=== PATIENT | female | born 1930 | race Caucasian/White ===

== ENCOUNTER 2017-08-17 17:42 | Inpatient (IN) | payer MEDICARE ==
[2017-08-17] MEDS ORDERED: cloNIDine 0.1 MG TAB ONE (18:06)
--- NOTE | 2017-08-17 18:57 | CT ---
CT OF HEAD NONCONTRAST: 08/17/17 CLINICAL HISTORY: Posttraumatic pain. Reference made to 09/01/13. FINDINGS: There is redemonstration of parenchymal atrophy with mild compensatory dilatation of ventricular syst em. Mild to moderate chronic microvascular ischemic disease is present. There is an interval lacunar infarction of the left thalamus. Redemonstration of hypoattenuation of the left subinsula as was desc ribed on previous head CT report. No intracranial hemorrhage, mass effect or midline shift is seen. IMPRESSION: 1. Interval age indeterminate left thalamic lacunar infarction. Correlate clinically as necessar y followup imaging with dedicated brain MRI may prove useful. 2. No acute intracranial hemorrhage or mass effect. POS: [facility]
--- NOTE | 2017-08-17 18:59 | CT ---
CERVICAL SPINE CT NONCONTRAST: 08/17/17 INDICATION: Posttraumatic neck injury, pain. FINDINGS: Craniocervical junction is intact. There is motion artifact/beam hardening artifact limiting detail n otably at the C2 level. No obvious acute fracture. No significant subluxation. There is prominent end plate degenerative change of C5-6 and C6-7 levels. IMPRESSION: No acute fracture of the cervical spine is identified. POS: [facility]
--- NOTE | 2017-08-17 19:02 | RAD ---
FRONTAL RADIOGRAPH PORTABLE SUPINE 08/17/17 COMPARISON: None. HISTORY: Trauma, pain. FINDINGS: The patient is imaged in the supine position, limiting assessment for pneumothorax and pleural fluid. Heart and mediastinal contours are grossly unremarkable. There is no focal consolidation or alveolar edema. IMPRESSION: Grossly unremarkable supine frontal radiograph chest. POS: [facility]
--- NOTE | 2017-08-17 19:06 | RAD ---
FOUR VIEWS RIGHT FEMUR: 08/17/17 COMPARISON: None. HISTORY: Fall, trauma, pain. FINDINGS: There is an obliquely oriented impacted fracture involving the right femoral neck at the base of the femoral head. There is impaction and lateral displacement. No additional fracture is noted. IMPRESSION: Transverse impacted fracture involving the proximal right femoral neck. POS: [facility]
[2017-08-17 19:17] LABS: #Basophils 0.1 thou/uL (0.0-0.2); #Lymphocytes 0.9 thou/uL (1.20-3.40); #Monocytes 0.4 thou/uL (0.11-0.59); #Neutrophils 7.5 thou/uL (1.40-6.50); %Basophils 0.6 % (0.0-1.0); %Eosinophils 0.5 % (0.0-10.0); %Lymphocytes 9.8 % (21.0-51.0); %Monocytes 4.6 % (0.0-10.0); %Neutrophils 84.5 % (42.0-75.0); Hemoglobin 13.1 g/dL (12.0-16.0); Mean Corpuscular HGB CONC 31.1 g/dL (32.0-36.0); Mean Corpuscular Hemoglobin 29.3 pg (27.0-31.0); Mean Corpuscular Volume 94.2 fl (81.0-99.0); Mean Platelet Volume 8.2 fL (7.4-10.4); Platelet Count 195 thou/uL (130-400); RBC Distribution Width 12.7 % (11.5-14.5); Red Blood Cell (RBC) Count 4.48 mill/uL (4.20-5.40); White Blood Cell (WBC) Count 8.8 thou/uL (4.8-10.8)
[2017-08-17 19:38] LABS: ALT (SGPT) 14 U/L (8-55); AST (SGOT) 24 U/L (5-34); Albumin 4.6 g/dL (3.4-4.8); Alkaline Phosphatase 73 U/L (40-150); Anion Gap 20 mmol/L (10-20); BUN (Urea Nitrogen) 47 mg/dL (9.8-20.1); Bilirubin, Total 0.7 mg/dL (0.2-1.2); CK (CPK) 116 U/L (29-168); Calc. Creatinine Clearance 0 mL/min (70-130); Calcium 10.3 mg/dL (7.8-10.44); Carbon Dioxide 19 mmol/L (23-31); Chloride 105 mmol/L (98-107); Estimated GFR-MDRD 18; Globulin 2.8 g/dL (2.4-3.5); Glucose 113 mg/dL (83-110); Lipase 68 U/L (8-78); Potassium 3.8 mmol/L (3.5-5.1); Protein, Total 7.4 g/dL (6.0-8.3); Sodium 140 mmol/L (136-145)
[2017-08-17 19:51] LABS: CKMB 1.4 ng/mL (0-6.6); Troponin I 0.021 ng/mL (< 0.028)
[2017-08-17] MEDS ORDERED: traMADol HCl 50 MG TAB PO PRN (19:51)
[2017-08-17] MEDS ORDERED: Morphine 2 MG/ML SYRINGE IVP PRN (19:51)
[2017-08-17] MEDS ORDERED: Dextrose 5% in Water 1,000 ML IV PRN (19:51)
[2017-08-17] MEDS ORDERED: Ondansetron ODT 4 MG TAB PO PRN (19:51)
[2017-08-17] MEDS ORDERED: Dextrose 50% Abboject 50 ML SYRINGE SLOW IVP PRN (19:51)
[2017-08-17] MEDS ORDERED: Ondansetron HCl/PF 4 MG/2 ML Vial IVP PRN (19:51)
[2017-08-17] MEDS ORDERED: Acetaminophen 1,000 MG in Premix Bag 1 BAG IVPB SCH (21:00)
[2017-08-17] MEDS ORDERED: Famotidine/PF 20 mg/2ml Vial SLOW IVP SCH (21:00)
--- NOTE | 2017-08-17 21:10 | HP ---
DATE OF ADMISSION: 08/17/2017 TRAUMA ACTIVATION: Not applicable. HISTORY OF PRESENT ILLNESS: Chelsea Colon is an 87-year-old female with past medical history of significant Alzheimer dementia and Santiago's palsy who presented to [facility] ER via EMS status post mechanical fall. Per patient' s caregiver at bedside, she was attempting to reach for her shoes on the floor, slipped and fell onto her right side. The patient had difficulty ambulating after her fall and had a complaint of right hip and knee pain. She was evaluated in the emergency room and found to have a right hip fracture. Orthopedic Surgery was notified and Trauma Services was asked to admit. Upon my evaluation, the patient has a chief complaint of right leg pain. She is unable to give me any further history. Caregivers at bedside and I spoke with the son-in-law over the phone. ALLERGIES: None. HOME MEDICATIONS: None. CHRONIC MEDICAL ILLNESSES: Alzheimer dementia, and Santiago's palsy. SURGICAL HISTORY: Tubal ligation. SOCIAL HISTORY: Patient lives at home with a caregiver. Caregiver denies alcohol, tobacco or illicit drug use. FAMILY HISTORY: Noncontributory. REVIEW OF SYSTEMS: Unable to obtain. The caregiver reports the patient has been her normal self over the past 7 days. PHYSICAL EXAMINATION: VITAL SIGNS: Blood pressure 196/100, pulse 95, respirations 20, O2 saturation 94% on room air, temperature 98.6. GENERAL: Well-developed elderly female in no acute distress, resting in bed. HEAD: Normocephalic, atraumatic. EYES: Pupils are PERRL. Extraocular movements are intact. NECK: Supple. Trachea is midline. C-collar has been removed by ER physician. CHEST: Atraumatic. Normal work of breathing, symmetric rise. LUNGS: Clear to auscultation bilaterally. CARDIOVASCULAR: Regular rate and rhythm, no obvious murmurs, rubs or gallops. GASTROINTESTINAL: Abdomen is soft, nontender, nondistended. BACK: Being within normal limits. MUSCULOSKELETAL: Right upper extremity skin tear, which has been dressed by ER. Left upper extremity is within normal limits. Left lower extremity is within normal limits for patient. Right lower extremity with limited range of motion secondary to pain. She is neurovascularly intact distal to the side of her injury. NEUROLOGIC: Moves all extremities x4. GCS of 14. Alert and oriented x0. LABORATORY FINDINGS: WBC 8.8, hemoglobin 13.1, hematocrit 42.2, platelet count 195. Sodium 140, potassium 3.8, carbon dioxide 19, BUN 47, creatinine 2.50, glucose 113, AST and ALT within normal limits. Troponin 0.021. Urinalysis is pending. RADIOGRAPHIC FINDINGS: CT of the brain negative for acute intracranial abnormality, but there was interval development of a left thalamic lacunar infarcts per radiology read, which is age indeterminate. CT of the C-spine was negative for acute fracture, dislocation. Chest x-ray was reviewed by me with prominent interstitial markings, but no acute cardiopulmonary process. X-ray of the right femur demonstrated a right femoral neck fracture. EKG sinus rhythm with PACs and nonspecific ST changes. ASSESSMENT: 1. Status post fall. 2. Right femoral neck fracture. 3. Acute traumatic pain. 4. Hypertension. 5. Acute kidney injury on likely chronic kidney disease. Patient had an elevated creatinine of 1.76 in 2013. 6. Alzheimer dementia. 7. History of Santiago's palsy. 8. Interval development of age indeterminate lacunar infarct and brain CT. PLAN: Admit to Trauma Services. The patient is at mental baseline per caregiver. Orthopedic surgery has been notified and plans for operative intervention tomorrow. Gentle IV fluid hydration. The patient should be n.p.o. after midnight. Antihypertensives p.r.n., perioperative pain management. Postoperative PT and OT. Gastritis and DVT prophylaxis as appropriate. Plans for admission were discussed with the patient's caregiver and son-in-law over the phone. Per that discussion, the patient does have an out of hospital DNR. This will be reflected in her medical record. All questions were answered at the time of this dictation. Dr Olivas saw and evaluated this patient shortly after her arrival to the surgical floor. SOPHY
[2017-08-18] MEDS: Sodium Chloride 0.9% 1,000 ML IV SCH ×3 (00:02→22:51)
[2017-08-18] MEDS ORDERED: Famotidine 40 MG/4 ML VIAL SLOW IVP SCH (00:15)
[2017-08-18] MEDS: Senokot S 8.6-50 MG TAB PO SCH ×3 (01:46→22:50)
[2017-08-18 02:00] VITALS: BMI 16.6
[2017-08-18] MEDS: hydrALAZINE 20 MG/ML VIAL SLOW IVP PRN ×2 (02:12→12:47)
[2017-08-18] MEDS: Morphine 4 MG/ML VIAL SLOW IVP PRN ×3 (02:26→22:41)
[2017-08-18 05:27] LABS: Anion Gap 14 mmol/L (10-20); BUN (Urea Nitrogen) 41 mg/dL (9.8-20.1); Calc. Creatinine Clearance 14 mL/min (70-130); Calcium 9.3 mg/dL (7.8-10.44); Carbon Dioxide 23 mmol/L (23-31); Chloride 106 mmol/L (98-107); Estimated GFR-MDRD 25; Glucose 133 mg/dL (83-110); Magnesium 2.2 mg/dL (1.6-2.6); Phosphorus 3.1 mg/dL (2.3-4.7); Potassium 3.7 mmol/L (3.5-5.1); Sodium 139 mmol/L (136-145)
[2017-08-18 05:45] LABS: #Basophils 0.1 thou/uL (0.0-0.2); #Eosinphils 0.1 thou/uL (0.0-0.7); #Lymphocytes 0.8 thou/uL (1.20-3.40); #Monocytes 0.7 thou/uL (0.11-0.59); #Neutrophils 8.3 thou/uL (1.40-6.50); %Basophils 0.7 % (0.0-1.0); %Eosinophils 0.6 % (0.0-10.0); %Lymphocytes 7.6 % (21.0-51.0); %Monocytes 7.5 % (0.0-10.0); %Neutrophils 83.7 % (42.0-75.0); Hemoglobin 11.7 g/dL (12.0-16.0); Mean Corpuscular HGB CONC 30.9 g/dL (32.0-36.0); Mean Corpuscular Hemoglobin 28.3 pg (27.0-31.0); Mean Corpuscular Volume 91.5 fl (81.0-99.0); Mean Platelet Volume 7.9 fL (7.4-10.4); Platelet Count 166 thou/uL (130-400); RBC Distribution Width 12.8 % (11.5-14.5); Red Blood Cell (RBC) Count 4.14 mill/uL (4.20-5.40); White Blood Cell (WBC) Count 9.9 thou/uL (4.8-10.8)
[2017-08-18 05:46] LABS: Bilirubin Negative (Negative); Blood, Urine Negative (Negative); Clarity CLEAR (Clear); Glucose, Urine (Dipstick) 100 mg/dL (Negative); Leukocyte Negative (Negative); Nitrite Negative (Negative); Protein, Urine (Dipstick) Trace mg/dL (Neg-Trace); Specific Gravity, Urine 1.016 (1.002-1.036); Urobilinogen 0.2 mg/dL (0.2-1.0)
[2017-08-18] MEDS: Acetaminophen 1,000 MG in Premix Bag 1 BAG IVPB SCH ×3 (07:45→18:02)
[2017-08-18] MEDS ORDERED: Midazolam HCl 2 mg/2 ml Vial ONE (08:56)
[2017-08-18] MEDS ORDERED: Fentanyl 250 MCG/5 ML VIAL ONE (08:56)
[2017-08-18] MEDS ORDERED: CEFAZOLIN/Water 2 GM/20 ML SYRINGE SLOW IVP SCH (09:00)
--- NOTE | 2017-08-18 09:25 | CON ---
DATE OF CONSULTATION: 08/18/2017 We were asked to see patient by the Emergency Room and Trauma. HISTORY OF PRESENT ILLNESS: Patient is an 87-year-old female with Alzheimer's after a fall. The pat iecuong was attempting to reach for her shoes, slipped, and fell on her right side. She was unable to a mbulate after that and was pointing at her right hip without pain. Caregiver and other information i s gathered from the notes, as the patient's Alzheimer's is fairly extensive. PAST MEDICAL HISTORY: Alzheimer's, Santiago's palsy. ALLERGIES: SULFA. PAST SURGICAL HISTORY: Tubal ligation. SOCIAL HISTORY: Resides with a caregiver. No alcohol or nicotine use whatsoever. FAMILY HISTORY: Noncontributory. REVIEW OF SYSTEMS: Unable to obtain due to advanced Alzheimer's. PHYSICAL EXAMINATION: GENERAL: Frail lady, very thin, resting in bed, not answering any questions whatsoever, appears to b e in no acute distress currently. HEENT: Face atraumatic. NECK: Supple. EXTREMITIES: Moving her upper extremities fair, but not on command. Lower extremities, I can move h er right lower extremity, but it is painful. She has good pulses at the bilateral lower extremities. ASSESSMENT: Right hip fracture. PLAN: We will do an ORIF on patient today to stabilize the hip for pain control and get her moving a s soon as possible. She is unable to consent. So, we will call her daughter and get her consented f or surgery. We have tried to explain the procedure for the patient, but obviously she is just, due t o her advanced Alzheimer dementia, unable to understand the procedure at hand. We will speak with th e daughter and go forth with surgery if authorized per family members. Thank you, Hemant Cooper PA-C, for Dr. Isaias Travis.
[2017-08-18] MEDS ORDERED: CEFAZOLIN/Water 2 GM/20 ML SYRINGE ONE (09:39)
[2017-08-18] MEDS ORDERED: Bisacodyl 10 MG SUPP PR PRN (09:43)
[2017-08-18] MEDS ORDERED: Acetaminophen 325 MG TAB PO PRN (09:43)
[2017-08-18] MEDS ORDERED: Cepastat Lozenges 1 LOZ PO PRN (09:43)
[2017-08-18] MEDS ORDERED: Ondansetron HCl/PF 4 MG/2 ML Vial IVP PRN (09:43)
[2017-08-18] MEDS ORDERED: Fleet Enema 133 ML BOT PR PRN (09:43)
[2017-08-18] MEDS ORDERED: Milk Of Magnesia 30 ML UDCUP PO PRN (09:43)
[2017-08-18] MEDS ORDERED: Ondansetron ODT 4 MG TAB PO PRN (09:43)
[2017-08-18] MEDS ORDERED: Sodium Chloride 0.9% 1,000 ML IV SCH (09:45)
[2017-08-18] MEDS ORDERED: Tranexamic Acid 1,000 MG in Sodium Chloride 0.9% 100 ML IVPB SCH (09:45)
[2017-08-18] MEDS ORDERED: HYDROmorphone 0.5 MG/0.5 ML SYRINGE ONE (10:46)
--- NOTE | 2017-08-18 13:21 | OP ---
DATE OF PROCEDURE: 08/18/2017 PREOPERATIVE DIAGNOSIS: Femoral neck fracture, right. POSTOPERATIVE DIAGNOSIS: Femoral neck fracture, right. SURGEON: Isaias Travis M.D. DIRECTOR OF CASINO: Hemant Cooper PA-C. BLOOD LOSS: 100 mL. SPECIMEN: None. DRAINS: None. COMPLICATIONS: None. IMPLANTS USED: Geneva Accolade hip fracture stem 3.5 with a 44 mm head and -4 sleeve. PROCEDURE IN DETAIL: After informed consent was obtained in the preoperative holding area, the patie nt was taken to the operative suite where general anesthesia was induced. The patient was then posit ioned in the lateral decubitus position. The hip was then prepped and draped in usual sterile fashio n. The patient received preoperative antibiotics. Prior to incision, time-out was called and all me mbers of the surgical team agreed upon site, surgeon, and patient. After this, a longitudinal incisi on was made directly over the trochanter, noted by palpation extending 2 fingerbreadths above and bel ow the trochanter. The deeper subcutaneous layer was undermined with Bovie electrocautery. The ilio tibial band was encountered and incised sharply and the plane below this was developed bluntly. A arnley retractor was placed to hold this opened. The lateral aspect of the trochanter and the abduct or muscles were encountered and then reflected anteriorly off the trochanter using Bovie electrocaute ry. Once this was completed, the anterior capsule was then encountered and identified and copious ca psulotomy was carried out, exposing the femoral neck and head. Dislocation maneuver was then performe d and an in situ provisional neck cut was then made using the oscillating saw. Attention was then tu rned to acetabular preparation and sequential reaming was carried out up to the appropriate diameter and a trial was then malleted into place with good firm resistance and no pullout. The permanent tico tabular shell was then malleted squarely into place, as was the appropriate liner. Once completed, t he wound was copiously irrigated and attention was then turned to femoral preparation. Flexion and ex ternal rotation was performed of the exposed thigh and femoral elevators were then placed at the prox imal aspect of the wound. Canal finder was used to establish the length of the canal and sequential reaming was carried out, followed by broaching. Once the appropriate stability was established with the trial broaches with both flexion, extension and rotational stability, we did trial with neutral a nd 2 mm offset incremental necks. Once the appropriate size was decided upon, with good stability no karon with flexion, extension, internal and external rotation and shuck being negative, we removed the femoral trial broach and malletted into place the permanent prosthesis with good firm fit, which was also stable to rotation. Again, the hip felt very stable to flexion, extension, internal and externa l rotation. Leg lengths appeared near anatomic clinically and we were quite happy with prosthesis pl acement. Copious irrigation was then carried out through the entirety of the wound. Primary closure of the abductors was accomplished with interrupted #2 Vicryl vtcyvl-rt-xecse stitches and the IT ban d was then closed with interrupted #2 Vicryl, oversewn with a #2 running barbed Quill stitch. Subcut aneous fascia was closed with running barbed Quill stitch and a subcuticular Monocryl barbed Quill st itch was used for skin closure and augmented with skin cement. A sterile dressing was applied. The p rocedure was terminated without any complication. All counts were correct. The patient was awakened in the operative suite and taken to the recovery room in stable condition.
[2017-08-18] MEDS ORDERED: PROPOFOL 200 MG/20 ML VIAL ONE (15:18)
[2017-08-18] MEDS ORDERED: Lidocaine 1% PF 5 ML VIAL ONE (15:18)
[2017-08-18] MEDS ORDERED: PHENYLEPHRINE-NS 100 MCG/ML 10 ML SYRINGE ONE (15:18)
[2017-08-18] MEDS ORDERED: Glycopyrrolate 0.2 MG/ML 5 ML SYRINGE ONE (15:18)
--- NOTE | 2017-08-18 15:20 | PRG ---
DATE OF SERVICE: 08/18/2017 ATTENDING PHYSICIAN: Dr. Harvinder Olivas. SUBJECTIVE: Ms. Colon was admitted last p.m. after a ground level fall in which she sustained a right hip fracture. She was admitted to the surgical floor by Trauma Services. She was taken to the operating room this morning by Dr. Travis, where she underwent an ORIF of the right femoral neck fracture. She is now seen postoperatively on the surgical floor. Her caregiver is at her bedside. Ms. Colon remains irritated and not really cooperative with answering any questions. She does say that she is not in pain. OBJECTIVE: VITAL SIGNS: Pulse 82, blood pressure 173/65 and respirations 18. GENERAL: Elderly female, frail appearing, no acute distress. PULMONARY: Bilateral breath sounds clear. No respiratory distress. CARDIOVASCULAR: Regular rate and rhythm. Heart sounds normal. GASTROINTESTINAL: Abdomen is soft, nontender and nondistended. Bowel sounds normal. MUSCULOSKELETAL: Surgical dressing in place to right hip. Cap refill brisk all extremities. Moves all extremities. NEUROLOGIC: GCS 14. A&O x1. ASSESSMENT: 1. Status post ground level fall. 2. Status post open reduction and internal fixation, right hip, postoperative day #0. 3. Acute kidney injury, likely chronic kidney disease. Creatinine today 1.94 down from 2.50 yesterday. Creatinine in 2013 was 1.76. 4. History of dementia, present on arrival. 5. History of Santiago's palsy. PLAN: 1. Antibiotics per Orthopedic Service. 2. Continue IV fluid. 3. May start diet this evening once the patient is more alert. 4. PT, OT evaluation and treatment. 5. Lovenox for DVT prophylaxis. 6. Pepcid for PUD prophylaxis. 7. Patient with no significant medical history. She has been slightly hypertensive. We will administer hydralazine p.r.n. We will consider initiating oral antihypertensives should blood pressure warrant. The patient was seen and examined with Dr. Olivas, who agrees with plan. [facility]
--- NOTE | 2017-08-18 15:27 | RAD ---
RIGHT HIP 2 VIEWS: HISTORY: An 87-year-old female with a history of postop total hip replacement. FINDINGS: Two views of the right hip demonstrate recent total hip replacement. No dislocation or evidence for periprosthetic acute fracture. IMPRESSION: Recent right total hip replacement. POS: [facility]
[2017-08-18] MEDS: CEFAZOLIN/Water 2 GM/20 ML SYRINGE SLOW IVP SCH (18:01)
[2017-08-18] MEDS ORDERED: Senokot S 8.6-50 MG TAB PO SCH (21:00)
[2017-08-18] MEDS: Ferrous Gluconate 324 MG TAB PO SCH (21:50)
[2017-08-18] MEDS: Famotidine 40 MG/4 ML VIAL SLOW IVP SCH (22:41)
[2017-08-19] MEDS: hydrALAZINE 20 MG/ML VIAL SLOW IVP PRN ×2 (00:03→09:47)
--- NOTE | 2017-08-19 00:04 | PRG ---
DATE OF SERVICE: 08/18/2017 SUBJECTIVE: This is an 87-year-old female, status post mechanical fall with resultant right hip frac ture. She is postop day 0 status post hip fracture repair. She has recently returned from the PACU and is somewhat drowsy. Upon my evaluation, she vocalized no complaint. OBJECTIVE: GENERAL: Resting in bed in no acute distress. VITAL SIGNS: Reviewed and stable. LUNGS: Breathing is nonlabored. NEUROLOGIC: No focal deficit is noted. The patient is making adequate urine. ASSESSMENT AND PLAN: As documented in daily progress note. Continue care as ordered. Continue to m onitor. Postoperative PT and OT. Pain management through p.o. analgesics. Continue to monitor.
[2017-08-19] MEDS: Sodium Chloride 0.9% 1,000 ML IV SCH ×4 (00:14→13:58)
[2017-08-19] MEDS: Acetaminophen 500 MG TAB PO SCH ×3 (00:15→13:58)
[2017-08-19] MEDS: CEFAZOLIN/Water 2 GM/20 ML SYRINGE SLOW IVP SCH (01:38)
[2017-08-19 05:16] LABS: Hemoglobin 10.9 g/dL (12.0-16.0); Mean Corpuscular HGB CONC 31.3 g/dL (32.0-36.0); Mean Corpuscular Hemoglobin 29.7 pg (27.0-31.0); Mean Corpuscular Volume 94.7 fl (81.0-99.0); Mean Platelet Volume 8.2 fL (7.4-10.4); Platelet Count 158 thou/uL (130-400); RBC Distribution Width 12.9 % (11.5-14.5); Red Blood Cell (RBC) Count 3.68 mill/uL (4.20-5.40); White Blood Cell (WBC) Count 12.7 thou/uL (4.8-10.8)
[2017-08-19 05:33] LABS: Anion Gap 12 mmol/L (10-20); BUN (Urea Nitrogen) 35 mg/dL (9.8-20.1); Calc. Creatinine Clearance 12 mL/min (70-130); Calcium 9.1 mg/dL (7.8-10.44); Carbon Dioxide 25 mmol/L (23-31); Chloride 106 mmol/L (98-107); Estimated GFR-MDRD 21; Glucose 117 mg/dL (83-110); Potassium 4.1 mmol/L (3.5-5.1); Sodium 139 mmol/L (136-145)
[2017-08-19] MEDS ORDERED: Amlodipine 5 MG TAB PO SCH ×2 (09:00→14:30)
[2017-08-19] MEDS ORDERED: Prevnar 13-Val Conj/PF 0.5 ML SYRINGE IM ONE (09:00)
[2017-08-19] MEDS: Enoxaparin Sodium 30 MG/0.3 ML SYRINGE SC SCH (09:45)
[2017-08-19] MEDS: Senokot S 8.6-50 MG TAB PO SCH ×2 (09:46→20:25)
[2017-08-19] MEDS: Multivitamin W/ Minerals 1 TAB PO SCH (09:46)
[2017-08-19] MEDS: Ferrous Gluconate 324 MG TAB PO SCH ×2 (09:46→20:25)
[2017-08-19] MEDS: Acetaminophen 1,000 MG in Premix Bag 1 BAG IVPB PRN ×2 (13:53→19:47)
[2017-08-19] MEDS ORDERED: Sodium Chloride 0.9% 250 ML IV SCH (16:30)
--- NOTE | 2017-08-19 18:11 | PRG ---
DATE OF SERVICE: 08/19/2017 ATTENDING PHYSICIAN: Dr. Harvinder Olivas. SUBJECTIVE: Ms. Colon is postoperative day #2, status post ORIF of right hip fracture. She has been stable on the surgical floor. She has had episodes of hypertension requiring IV hydralazine. OBJECTIVE: VITAL SIGNS: Temperature 97.7, pulse 96, respirations 20, O2 saturation 94% on room air, blood pressure 143/63. PULMONARY: Bilateral breath sounds clear. No respiratory distress. CARDIOVASCULAR: Regular rate and rhythm. Heart sounds normal. GASTROINTESTINAL: Abdomen is soft, nontender, nondistended. Bowel sounds normal. MUSCULOSKELETAL: Surgical dressings in place to right hip. Cap refill brisk in all extremities. Moves all extremities. NEUROLOGIC: GCS is 14. A&O x1. ASSESSMENT: 1. Status post ground level fall. 2. Status post open reduction and internal fixation, right hip. Postoperative day #1. 3. Acute kidney injury on likely chronic kidney disease. Creatinine today 2.19 up from 1.94 yesterday. 4. Urine output marginal. Mucous membranes appear dry. 5. History of dementia, present on arrival. 6. History of Santiago's palsy. PLAN: 1. Increase IV fluids to 100 mL per hour. 2. A 250 mL bolus of IV fluid. 3. Speech therapy for swallow evaluation. 4. Begin Amlodipine 5 mg. 5. Lovenox for DVT prophylaxis. 6. Pepcid for PUD prophylaxis. The patient was seen and examined with Dr. Olivas, who agrees with plan. [facility]
[2017-08-19] MEDS: Famotidine 40 MG/4 ML VIAL SLOW IVP SCH (20:41)
[2017-08-20] MEDS: Sodium Chloride 0.9% 1,000 ML IV SCH ×3 (00:19→15:01)
--- NOTE | 2017-08-20 00:20 | PRG ---
DATE OF SERVICE: 08/19/2017 SUBJECTIVE: This is an 87-year-old female postop day #1 status post hip fracture repair after mechan ical fall. The patient was started on amlodipine earlier today. A Driver catheter was left in place to follow urine output as the patient had a mild increase in her creatinine this morning. Upon my ev aluation, the patient is resting in bed, in no acute distress. She is unable to vocalize the level o f her pain. OBJECTIVE: VITAL SIGNS: Reviewed, mildly tachycardic prior to receiving pain medications. GENERAL: Resting in bed. RESPIRATORY: Breathing is nonlabored. EXTREMITIES: Moves all extremities. NEUROLOGIC: Appears to be at baseline mental status. ASSESSMENT AND PLAN: As documented in progress note earlier today. Continue care as ordered. Kathy nue to monitor. Continue to follow urine output. A.m. labs.
[2017-08-20] MEDS: Acetaminophen 1,000 MG in Premix Bag 1 BAG IVPB PRN (02:20)
[2017-08-20] MEDS: hydrALAZINE 20 MG/ML VIAL SLOW IVP PRN (05:20)
[2017-08-20 05:47] LABS: Hemoglobin 10.9 g/dL (12.0-16.0); Mean Corpuscular HGB CONC 31.4 g/dL (32.0-36.0); Mean Corpuscular Hemoglobin 30.1 pg (27.0-31.0); Mean Corpuscular Volume 95.9 fl (81.0-99.0); Mean Platelet Volume 8.6 fL (7.4-10.4); Platelet Count 143 thou/uL (130-400); RBC Distribution Width 13.1 % (11.5-14.5); Red Blood Cell (RBC) Count 3.61 mill/uL (4.20-5.40); White Blood Cell (WBC) Count 12.4 thou/uL (4.8-10.8)
[2017-08-20 05:56] LABS: Anion Gap 18 mmol/L (10-20); BUN (Urea Nitrogen) 34 mg/dL (9.8-20.1); Calc. Creatinine Clearance 14 mL/min (70-130); Carbon Dioxide 16 mmol/L (23-31); Chloride 109 mmol/L (98-107); Estimated GFR-MDRD 25; Glucose 103 mg/dL (83-110); Magnesium 1.9 mg/dL (1.6-2.6); Phosphorus 2.8 mg/dL (2.3-4.7); Potassium 3.6 mmol/L (3.5-5.1); Sodium 139 mmol/L (136-145)
[2017-08-20] MEDS: Amlodipine 5 MG TAB PO SCH (08:25)
[2017-08-20] MEDS: Ferrous Gluconate 324 MG TAB PO SCH ×2 (08:25→22:12)
[2017-08-20] MEDS: Senokot S 8.6-50 MG TAB PO SCH ×2 (08:25→22:12)
[2017-08-20] MEDS: Multivitamin W/ Minerals 1 TAB PO SCH (08:25)
[2017-08-20] MEDS: Enoxaparin Sodium 30 MG/0.3 ML SYRINGE SC SCH (08:25)
--- NOTE | 2017-08-20 12:06 | PQF ---
CLINICAL DOCUMENTATION IMPROVEMENT CLARIFICATION FORM: ICD-10 Updated PLEASE DO AN ADDENDUM TO THE PROGRESS NOTE WITH ANY DOCUMENTATION UPDATES OR ADDITIONS AND CARRY THROUGH TO DC SUMMARY. THANK YOU. DATE: 08/20 ATTN: LOREE CHARLTON NP/ DR. MAGGIE MIDDLETON Please exercise your independent, professional judgment in responding to the clarification form. Clinical indicators are provided on the bottom of this form for your review. Please check appropriate box(s): BMI < 19 with associated diagnosis of: (check one) [ ] Underweight [ ] Cachexia [ ] Other diagnosis [ ] Unable to determine For continuity of documentation, please document condition throughout progress notes and discharge summary. Thank You. BMI < 19 Under weight 19 - 24.9 Healthy 25.0 - 29.9 Slightly Overweight 30.0 - 34.9 Obese 35.0 - 39.9 Severely Obese 40.0 and Over Morbidly Obese CLINICAL INDICATORS - SIGNS / SYMPTOMS / LABS BMI: 16.7 ORTHO CONSULT DOCUMENTATION 08/18: PHYSICAL EXAMINATION: GENERAL: FRAIL LADY, VERY THIN TRAUMA FURNITURE MOVER DRIVER PROGRESS NOTE 08/18: OBJECTIVE: GENERAL: ELDERLY FEMALE, FRAIL APPEARING RISK FACTORS: ALZHEIMER DEMENTIA REQUIRES MAXIMUM ASSISTANCE W/MEALS TREATMENTS: NUTRITION ASSESSMENT FOR LOW BMI SPEECH CONSULT NUTRITION SUPPLEMENT (SUPLENA BID) THANK YOU! Dasia (This form is maintained as a part of the permanent medical record) 2015 [facility]. All Rights Reserved Dasia Ayala RN, BSN [email or web address] Office: [phone] [facility]
--- NOTE | 2017-08-20 17:38 | PRG ---
DATE OF SERVICE: 08/20/2017 ATTENDING PHYSICIAN: Dr. Wally Donnelly. SUBJECTIVE: Ms. Colon is postoperative day #3 status post open reduction and internal fixation of right hip fracture. She has been stable on the surgical floor. She has had episodes of hypertension requiring IV hydralazine. She was started on amlodipine yesterday. She has been stable overnight. OBJECTIVE: VITAL SIGNS: Temperature 98.1, pulse 78, respirations 14, O2 sat 97% on room air, blood pressure 119/70. PULMONARY: Bilateral breath sounds clear. No respiratory distress. CARDIOVASCULAR: Regular rate and rhythm. Heart sounds normal. GASTROINTESTINAL: Abdomen is soft, nontender, and nondistended. Bowel sounds normal. MUSCULOSKELETAL: Cap refill brisk in all extremities. Moves all extremities. NEUROLOGIC: GCS 14, A&O x1. ASSESSMENT: 1. Status post ground level fall. 2. Status post open reduction and internal fixation of right hip, postoperative day #3. 3. Acute kidney injury on likely chronic kidney disease. Creatinine today is 1.89 down from 2.1 on yesterday. This is appearing to be nearing normal for as her creatinine in 2013 was 1.76. 4. History of dementia, present on arrival. 5. History of Santiago's palsy. PLAN: 1. Discontinue IV fluid. 2. Speech therapy consult for swallow evaluation. 3. Continue amlodipine 5 mg. 4. Discontinue Driver catheter. 5. Lovenox for DVT prophylaxis. 6. Pepcid for PUD prophylaxis. The patient to discharge to SNF for rehabilitation. Rehab evaluation is pending. Anticipate patient will discharge in the next 1-2 days. Patient was seen and examined with Dr. Donnelly, attending surgeon, who agrees with plan. [facility]
[2017-08-20] MEDS: traMADol HCl 50 MG TAB PO PRN (17:44)
[2017-08-20] MEDS: Acetaminophen 500 MG TAB PO SCH ×2 (17:44→23:29)
[2017-08-20] MEDS: Famotidine 40 MG/4 ML VIAL SLOW IVP SCH (22:12)
--- NOTE | 2017-08-20 22:36 | PRG ---
DATE OF SERVICE: 08/20/2017 SUBJECTIVE: This is an 87-year-old female postop day #3 status post hip fracture repair. The patien t worked with physical therapy earlier today. She has been then hemodynamically stable. Acute kidne y injury appears to be improved and close to the patient's baseline renal function of 1.7. Upon my e valuation, the patient vocalized no complaints. OBJECTIVE: VITAL SIGNS: Reviewed and stable. RESPIRATORY: Breathing is nonlabored. GENERAL: Resting in bed, in no acute distress. NEUROLOGIC: No focal deficit is noted. ASSESSMENT AND PLAN: As documented in daily progress note. [facility]. Continue care as ordered. Continue to monitor.
[2017-08-21 05:31] LABS: Hemoglobin 9.9 g/dL (12.0-16.0); Mean Corpuscular HGB CONC 31.4 g/dL (32.0-36.0); Mean Corpuscular Hemoglobin 29.9 pg (27.0-31.0); Mean Corpuscular Volume 95.3 fl (81.0-99.0); Mean Platelet Volume 8.3 fL (7.4-10.4); Platelet Count 155 thou/uL (130-400); RBC Distribution Width 13.2 % (11.5-14.5); White Blood Cell (WBC) Count 10.8 thou/uL (4.8-10.8)
[2017-08-21 06:04] LABS: Anion Gap 13 mmol/L (10-20); BUN (Urea Nitrogen) 33 mg/dL (9.8-20.1); Calc. Creatinine Clearance 17 mL/min (70-130); Calcium 9.2 mg/dL (7.8-10.44); Carbon Dioxide 21 mmol/L (23-31); Chloride 110 mmol/L (98-107); Estimated GFR-MDRD 31; Glucose 110 mg/dL (83-110); Potassium 3.3 mmol/L (3.5-5.1); Sodium 141 mmol/L (136-145)
[2017-08-21] MEDS: hydrALAZINE 20 MG/ML VIAL SLOW IVP PRN (06:22)
[2017-08-21] MEDS: Acetaminophen 500 MG TAB PO SCH ×2 (06:25→11:31)
[2017-08-21 07:39] LABS: Phosphorus 2.6 mg/dL (2.3-4.7)
[2017-08-21] MEDS ORDERED: Potassium Phosphate 20 MMOL in Sodium Chloride 0.9% 250 ML 250 ML IVPB SCH (08:30)
[2017-08-21] MEDS: Senokot S 8.6-50 MG TAB PO SCH (08:55)
[2017-08-21] MEDS: Enoxaparin Sodium 30 MG/0.3 ML SYRINGE SC SCH (08:56)
[2017-08-21] MEDS: Multivitamin W/ Minerals 1 TAB PO SCH (08:56)
[2017-08-21] MEDS: Ferrous Gluconate 324 MG TAB PO SCH (08:56)
[2017-08-21] MEDS: Amlodipine 5 MG TAB PO SCH (08:56)
[2017-08-21] MEDS ORDERED: Polyethylene Glycol 3350 17 GM Packet PO SCH (09:00)
[2017-08-21] MEDS: traMADol HCl 50 MG TAB PO PRN (11:31)
[2017-08-21 15:16] VITALS: BP 137/74; TEMP 97.4
--- NOTE | 2017-08-22 10:24 | DIS ---
DATE OF ADMISSION: 08/17/2017 DATE OF DISCHARGE: 08/21/2017 ADMITTING PHYSICIAN: Dr. Harvinder Olivas. DISCHARGING PHYSICIAN: Dr. Harvinder Olivas. ADMISSION DIAGNOSES: 1. Right femoral neck fracture. 2. Acute kidney injury on likely chronic kidney disease. 3. Acute traumatic pain. 4. Alzheimer's dementia. 5. History of Santiago's palsy. 6. History of hypertension. DISCHARGE DIAGNOSES: 1. Right femoral neck fracture. 2. Acute kidney injury on likely chronic kidney disease. 3. Acute traumatic pain. 4. Alzheimer's dementia. 5. History of Santiago's palsy. 6. History of hypertension. PROCEDURES PERFORMED: Right hip hemiarthroplasty. HOSPITAL COURSE: Ms. Colon is an 87-year-old female with past medical history of significant Alzheimer's dementia and Santiago's palsy, who presented to [place] ED via EMS after suffering a ground-level fall. The patient was evaluated and found to have a right hip fracture. Orthopedic Surgery was notified and trauma service was admitted. Patient underwent right hip hemiarthroplasty with Dr. Travis on 08/18/2017 and was afterward transferred to the surgical floor. She had several episodes of hypertension. She was given IV hydralazine and was otherwise stable. She was discharged in stable condition to rehab on 08/21/2017. DISCHARGE MEDICATIONS: Patient was discharged on all of her inpatient medications. ACTIVITY INSTRUCTIONS: Patient has Orthopedic limitations including weightbearing as tolerated. NOURISHMENT INSTRUCTIONS: Patient is on a renal low-protein diet with Suplena b.i.d. THERAPY INSTRUCTIONS: Patient to receive occupational, physical therapy, and speech therapy and rehabilitation. FOLLOWUP INSTRUCTIONS: Patient is to follow up with Dr. Travis in 14 days. Patient may follow up with Dr. Olivas as needed. However, no formal followup is scheduled. This patient was seen and examined along with Dr. Harvinder Olivas who agrees to this discharge plan. SOPHY
--- NOTE | 2017-09-09 00:25 | EKG ---
Test Reason : Blood Pressure : / mmHG Vent. Rate : 097 BPM Atrial Rate : 097 BPM P-R Int : 160 ms QRS Dur : 066 ms QT Int : 346 ms P-R-T Axes : 046 063 065 degrees QTc Int : 439 ms Sinus rhythm with Premature atrial complexes Nonspecific T wave abnormality Abnormal ECG Confirmed by EUGENIO VILLAGOMEZ ([id number]), slot editor RALPH MCELROY ([id number] on 09/09/2017 12:24:21 AM Referred By: Confirmed By:EUGENIO VILLAGOMEZ
== END 2017-08-21 18:26 | DRG 470 ==
LOC: ERS 17:42 → SURG A 19:51
PROVIDERS: ADMIT Surgery; ATTEND Surgery
PROC: 0SRR0JZ Replacement of Right Hip Joint, Femoral Surface with Synthetic Substitute, Open Approach (ICD-10-PCS; principal; 2017-08-18)
DX: S72.001A Fracture of unspecified part of neck of right femur, initial encounter for closed fracture (principal); N17.9 Acute kidney failure, unspecified; G30.9 Alzheimer's disease, unspecified; F02.80 Dementia in other diseases classified elsewhere, unspecified severity, without behavioral disturbance, psychotic disturbance, mood disturbance, and anxiety; G89.11 Acute pain due to trauma; I12.9 Hypertensive chronic kidney disease with stage 1 through stage 4 chronic kidney disease, or unspecified chronic kidney disease; N18.9 Chronic kidney disease, unspecified; Z66 Do not resuscitate; W07.XXXA Fall from chair, initial encounter
CPT/HCPCS: 36415; 51702; 70450; 71045; 72125; 80048; 80053; 81003; 82553; 83690; 83735; 84100; 84484; 85025; 85027; 87086; 93005; G0390; G8978-GP-CN; G8979-GP-CL; G8987-GO-CM; G8988-GO-CK; G8996-GN-CL; G8997-GN-CK; G8997-GN-CL; J0131; J0360; J1170; J1650; J2001; J2250; J2270; J2405; J2704; J3010; J7050; J7620

== ENCOUNTER 2017-09-22 09:36 | Inpatient (IN) | payer MEDICARE ==
[2017-09-22 10:13] LABS: #Basophils 0.1 thou/uL (0.0-0.2); #Eosinphils 0.1 thou/uL (0.0-0.7); #Lymphocytes 0.6 thou/uL (1.20-3.40); #Monocytes 1.1 thou/uL (0.11-0.59); #Neutrophils 14.6 thou/uL (1.40-6.50); %Basophils 0.6 % (0.0-1.0); %Eosinophils 0.6 % (0.0-10.0); %Lymphocytes 3.7 % (21.0-51.0); %Monocytes 6.6 % (0.0-10.0); %Neutrophils 88.5 % (42.0-75.0); Hemoglobin 9.4 g/dL (12.0-16.0); Mean Corpuscular HGB CONC 30.8 g/dL (32.0-36.0); Mean Corpuscular Hemoglobin 29.8 pg (27.0-31.0); Mean Corpuscular Volume 96.8 fl (81.0-99.0); Mean Platelet Volume 6.8 fL (7.4-10.4); Platelet Count 360 thou/uL (130-400); RBC Distribution Width 14.8 % (11.5-14.5); Red Blood Cell (RBC) Count 3.15 mill/uL (4.20-5.40); White Blood Cell (WBC) Count 16.5 thou/uL (4.8-10.8)
[2017-09-22 10:38] LABS: ALT (SGPT) 17 U/L (8-55); AST (SGOT) 23 U/L (5-34); Albumin 3.6 g/dL (3.4-4.8); Alkaline Phosphatase 97 U/L (40-150); Anion Gap 15 mmol/L (10-20); BUN (Urea Nitrogen) 27 mg/dL (9.8-20.1); Bilirubin, Total 0.8 mg/dL (0.2-1.2); Calc. Creatinine Clearance 0 mL/min (70-130); Calcium 9.6 mg/dL (7.8-10.44); Carbon Dioxide 23 mmol/L (23-31); Chloride 104 mmol/L (98-107); Estimated GFR-MDRD 31; Globulin 3.1 g/dL (2.4-3.5); Glucose 94 mg/dL (83-110); Potassium 3.9 mmol/L (3.5-5.1); Protein, Total 6.7 g/dL (6.0-8.3); Sodium 138 mmol/L (136-145)
[2017-09-22 12:38] LABS: Bilirubin Negative (Negative); Blood, Urine Trace (Negative); Clarity CLOUDY (Clear); Glucose, Urine (Dipstick) Negative (Negative); Leukocyte Negative (Negative); Nitrite Negative (Negative); Pathc Cast-AUWi Flag 1.01 (0-2.49); Protein, Urine (Dipstick) 30 mg/dL (Neg-Trace); RBC/HPF None Seen HPF (0-3); Specific Gravity, Urine 1.019 (1.002-1.036); Urobilinogen 0.2 mg/dL (0.2-1.0); WBC/HPF None Seen HPF (0-3); pH, Urine 5.5 (5.0-9.0)
--- NOTE | 2017-09-22 12:45 | RAD ---
2 VIEWS RIGHT HIP: Date: 09/22/17 COMPARISON: 08/18/17. HISTORY: Pain, prior hip arthroplasty. FINDINGS: There is a total hip arthroplasty on the right. There is a greater trochanter fracture fragment which measures approximately 1.5 x 1.3 cm with proximal distraction secondary to pull from gluteal muscula ture. No evidence for hardware failure. There is lateral soft tissue swelling adjacent to the proxima l right femur. IMPRESSION: Proximally displaced fracture of the greater trochanter. Lateral soft tissue swelling which could be postoperative or inflammatory/infectious in nature. Clinical correlation required. POS: [facility]
[2017-09-22 12:50] LABS: Bacteria/HPF 1+ HPF (None Seen); Hyaline Casts/LPF 0-3 HYALINE CAST LPF (0-3 Hyaline)
[2017-09-22 12:51] LABS: Crystals/HPF 1+ AMORPH URATES HPF (Negative)
[2017-09-22] MEDS ORDERED: Milk Of Magnesia 30 ML UDCUP PO PRN (13:46)
[2017-09-22] MEDS ORDERED: Clindamycin/D5W 600 MG in Premix Bag 1 BAG IVPB SCH (14:00)
[2017-09-22] MEDS ORDERED: Communication Order-Pharmacy FS SCH (14:00)
[2017-09-22] MEDS ORDERED: Lorazepam 2 MG/ML VIAL ONE (14:13)
--- NOTE | 2017-09-22 14:15 | HP ---
DATE OF ADMISSION: 09/22/2017 ADMITTING DIAGNOSIS: Cellulitis right hip, status post right hip hemiarthroplasty. 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 Following her fall, the patient was admitted to [facility] in the Trauma Service and the patient underwent a right hip hemiarthroplasty with Dr. Isaias Travis. The patient has now been recovering at home with her caregiver; however, she has had some increased right hip pain over the last 24-48 hours as well as some increased redness of the skin. There does not appear to be significant pain with range of motion. The patient was seen in the emergency room a nd a CBC was obtained which revealed an elevated white blood cell count and as such, Orthopedic consu ltation requested. PAST MEDICAL HISTORY: Remarkable for Alzheimer dementia, Santiago's palsy, hypertension. PAST SURGICAL HISTORY: Includes tubal ligation as well as right hip hemiarthroplasty. REVIEW OF SYSTEMS: No recent fevers, chills or sweats. No chest pain or shortness of breath. No nu mbness or tingling of the lower extremities. MEDICATIONS: Include Norvasc, Xanax, and an iron supplement. ALLERGIES: None known. SOCIAL HISTORY: The patient lives at home with caregiver. She does not drink alcohol or consume tob acco or illicit drugs. FAMILY HISTORY: Noncontributory. PHYSICAL EXAMINATION: HEENT: Atraumatic, normocephalic. HEART: Shows a regular rate and rhythm without murmur. LUNGS: Clear to auscultation bilaterally with good breath sounds. Chest wall is nontender. ABDOMEN: Flat and nontender with normal bowel sounds. Pelvis is stable to compression. EXTREMITIES: Remarkable for bilateral upper extremities that are atraumatic. A left lower extremity also atraumatic. The right lower extremity remarkable for a well-healed lateral hip skin incision f rom her prior hemiarthroplasty. There is a very well delineated area of erythema around the surgical skin incision. There is also some induration of the skin. The hip is held in a flexed postures pre ferred a position of comfort; however, I am able to extend the hip to within 45 degrees of full and t hen again flexed the hip and with this flexion, extension, and motion, no pain is elicited. She does have pain to direct palpation over the area of erythema. The area of erythema is approximately 7 in ches round. I do not appreciate any groin adenopathy. There is absolutely no drainage. LABORATORY: He was found to have a white count of 16.5, hematocrit of 30.5 and 360,000 platelets. S he has a sedimentation rate of 56. Her chemistry panel was remarkable for slightly elevated BUN and creatinine of 27 and 1.57 respectively. She has a C-reactive protein of 29.06. A UA was obtained in the emergency room is remarkable for yellow cloudy fluid that is nitrite negative. Two view x-ray o f the right hip was obtained today and is remarkable for a hemiarthroplasty that is in good alignment . There does appear to be an acute fracture at the tip of the greater trochanter and I do not apprec iate an obvious fracture immediately following her surgery in August. ASSESSMENT: The patient is an 87-year-old lady with a 48-hour history of some increased erythema ove rlying the surgical incision. The patient still has supple range of motion of her hip, but pain with weightbearing, which could be the result of her greater trochanter fracture versus possible deeper i nfection. PLAN: At this time, the patient will be admitted with principal diagnosis of cellulitis of her right hip with additional diagnoses of Alzheimer's, Santiago's palsy, hypertension, and recent history of hip hemiarthroplasty. We will begin patient on clindamycin for this presumed strep cellulitis. I have d iscussed with patient's caregiver that should we need to proceed with surgery. We will keep her n.p. o. after midnight and reassess her in the morning. If there is not significant diminished erythema f rom her clindamycin, we may need to proceed with a formal incision and drainage procedure. I believe all questions have been answered. The patient will be admitted primarily to the [facility].
[2017-09-22] MEDS ORDERED: [UNRECOGNIZED DRUG - REMARK] IVPB PRN (14:16)
[2017-09-22] MEDS: Acetaminophen 1,000 MG in Premix Bag 1 BAG IVPB PRN ×2 (17:26→23:48)
[2017-09-22 17:44] VITALS: BMI 17.8
[2017-09-22] MEDS ORDERED: Prevnar 13-Val Conj/PF 0.5 ML SYRINGE IM ONE (18:00)
[2017-09-23] MEDS: Clindamycin/D5W 600 MG in Premix Bag 1 BAG IVPB SCH ×2 (01:15→11:33)
[2017-09-23 06:05] LABS: #Basophils 0.1 thou/uL (0.0-0.2); #Eosinphils 0.1 thou/uL (0.0-0.7); #Lymphocytes 0.8 thou/uL (1.20-3.40); #Monocytes 0.9 thou/uL (0.11-0.59); #Neutrophils 11.4 thou/uL (1.40-6.50); %Basophils 0.6 % (0.0-1.0); %Eosinophils 0.6 % (0.0-10.0); %Lymphocytes 6.4 % (21.0-51.0); %Monocytes 6.6 % (0.0-10.0); %Neutrophils 85.8 % (42.0-75.0); Hemoglobin 8.3 g/dL (12.0-16.0); Mean Corpuscular HGB CONC 31.6 g/dL (32.0-36.0); Mean Corpuscular Hemoglobin 30.8 pg (27.0-31.0); Mean Corpuscular Volume 97.3 fl (81.0-99.0); Mean Platelet Volume 7.5 fL (7.4-10.4); Platelet Count 247 thou/uL (130-400); RBC Distribution Width 14.6 % (11.5-14.5); Red Blood Cell (RBC) Count 2.68 mill/uL (4.20-5.40); White Blood Cell (WBC) Count 13.3 thou/uL (4.8-10.8)
[2017-09-23] MEDS: Acetaminophen 1,000 MG in Premix Bag 1 BAG IVPB PRN (06:45)
[2017-09-23] MEDS: ALPRAZolam 0.25 MG TAB PO PRN ×2 (06:45→15:08)
[2017-09-23] MEDS ORDERED: Fentanyl 250 MCG/5 ML VIAL ONE (07:33)
[2017-09-23] MEDS: Amlodipine 5 MG TAB PO SCH (07:42)
[2017-09-23] MEDS ORDERED: Clindamycin/D5W 600 mg/50 ml Premix Bag ONE (08:16)
[2017-09-23] MEDS ORDERED: Amlodipine 5 MG TAB PO SCH (09:00)
[2017-09-23] MEDS ORDERED: Tobramycin Sulfate 1.2 GM VIAL ONE (09:02)
[2017-09-23] MEDS ORDERED: Promethazine HCl 25 MG/ML VIAL SLOW IVP PRN (10:31)
[2017-09-23] MEDS ORDERED: Ondansetron HCl/PF 4 MG/2 ML Vial IVP PRN (10:31)
[2017-09-23] MEDS ORDERED: Promethazine HCl 25 MG/ML VIAL IM PRN (10:31)
[2017-09-23] MEDS ORDERED: PHENYLEPHRINE-NS 100 MCG/ML 10 ML SYRINGE ONE ×3 (10:49→11:37)
[2017-09-23 11:02] LABS: #Basophils 0.1 thou/uL (0.0-0.2); #Lymphocytes 0.7 thou/uL (1.20-3.40); #Monocytes 0.5 thou/uL (0.11-0.59); #Neutrophils 10.6 thou/uL (1.40-6.50); %Basophils 0.4 % (0.0-1.0); %Eosinophils 0.4 % (0.0-10.0); %Lymphocytes 5.7 % (21.0-51.0); %Monocytes 4.5 % (0.0-10.0); Hemoglobin 7.5 g/dL (12.0-16.0); Mean Corpuscular HGB CONC 31.1 g/dL (32.0-36.0); Mean Corpuscular Hemoglobin 30.2 pg (27.0-31.0); Mean Platelet Volume 7.3 fL (7.4-10.4); Platelet Count 254 thou/uL (130-400); RBC Distribution Width 14.7 % (11.5-14.5); White Blood Cell (WBC) Count 11.9 thou/uL (4.8-10.8)
[2017-09-23 11:30] LABS: Anion Gap 14 mmol/L (10-20); BUN (Urea Nitrogen) 34 mg/dL (9.8-20.1); Calc. Creatinine Clearance 20 mL/min (70-130); Calcium 8.1 mg/dL (7.8-10.44); Carbon Dioxide 21 mmol/L (23-31); Chloride 107 mmol/L (98-107); Estimated GFR-MDRD 34; Glucose 132 mg/dL (83-110); Potassium 3.6 mmol/L (3.5-5.1); Sodium 138 mmol/L (136-145)
[2017-09-23] MEDS ORDERED: Succinylcholine Chloride 20 MG/ML 10 ml SYRINGE FS ONE (11:33)
[2017-09-23] MEDS ORDERED: PROPOFOL 200 MG/20 ML VIAL ONE (11:33)
[2017-09-23] MEDS ORDERED: ePHEDrine/0.9% NaCl/PF SYRINGE 50 mg/10 ml ONE (11:33)
[2017-09-23] MEDS ORDERED: Lidocaine 1% PF 5 ML VIAL ONE (11:33)
[2017-09-23] MEDS ORDERED: Piperacillin/Tazobactam 3.375 GM in Sodium Chloride 0.9% 100 ML IVPB SCH (12:00)
[2017-09-23] MEDS ORDERED: Fentanyl 100 MCG/2 ML VIAL ONE (12:04)
[2017-09-23] MEDS: traMADol HCl 50 MG TAB PO PRN (15:08)
--- NOTE | 2017-09-23 15:17 | RAD ---
RIGHT HIP 2 VIEWS: Date: 09/23/17 HISTORY: Hip fracture postop. COMPARISON: 09/21/17. FINDINGS: Satisfactory appearance of right hip arthroplasty. The greater trochanter fracture appears to be rese cted. IMPRESSION: Satisfactory postoperative appearance. POS: [facility]
[2017-09-23] MEDS: Piperacillin/Tazobactam 3.375 GM in Sodium Chloride 0.9% 100 ML IVPB SCH ×2 (15:19→21:32)
[2017-09-23] MEDS: Morphine 4 MG/ML VIAL IV PRN (16:40)
--- NOTE | 2017-09-23 18:00 | OP ---
DATE OF PROCEDURE: 09/23/2017. PREOPERATIVE DIAGNOSES: 1. Infected right hip hemiarthroplasty. 2. Right greater trochanteric fracture. POSTOPERATIVE DIAGNOSES: 1. Infected right hip hemiarthroplasty. 2. Right greater trochanteric fracture. SURGICAL PROCEDURES: 1. Revision of right hip hemiarthroplasty. 2. Irrigation and debridement of right hip. 3. Excision of right greater trochanter fracture fragment with direct repair of gluteus medius to ba se of the greater trochanter. ANESTHESIA: General. SURGEON: Kal Campbell M.D. BLOOD LOSS: Approximately 200 mL. SPECIMEN: Swab and tissue sent for Gram stain culture and sensitivity. IMPLANTS: A [place] #1 stem with Simplex cement was used with Unitrax 44 mm endoprosthesis. The Simplex cement was mixed with 4 grams, 2 bags of Simplex cement were mixed with 4 grams of vanc omycin and 2.4 grams of tobramycin. COMPLICATIONS: None. DRAINS: Hemovac x1. OUTCOME: Satisfactory. INDICATIONS: The patient is an 87-year-old lady now just over 1 month status post right femoral neck fracture treated with right hip hemiarthroplasty. The patient presents with an area of erythema and increased swelling over the lateral skin incision. The patient now taken to the operating room for anticipated irrigation, debridement, and possible revision of the right hip hemiarthroplasty. Inform ed consent has been obtained. I believe all questions have been answered. DESCRIPTION OF PROCEDURE: The patient was brought to the operating room and a timeout performed foll owed by induction of general anesthesia. Next, patient was positioned in the left lateral decubitus position and a sterile prep and drape was performed of the right lower extremity. Next, the skin was incised following the prior skin incision with an ellipse of skin taken out proximally where there w as some mild wound dehiscence present. Once the skin was sharply incised, dissection was carried byron n towards the underlying tensor fascia and fascia andrew. However, at this point that layer of closure was actually opening and there was found to be purulent material present. This purulent material wa s swabbed and sent for Gram stain culture and sensitivity. The remaining sutures from the fascia lat a closure were opened exposing the lateral aspect of the femur. The endoprosthesis was readily visib le. The fractured greater trochanter did have the gluteus medius attachment to it. The hip was then dislocated and the implant removed without difficulty. The fractured tip of the greater trochanter was then excised sharply. Next, using a combination of scalpel and curette, sharp debridement was pe rformed of the skin, subcutaneous fat, fascia, and muscle layers and removing nonviable tissue. A cu rette was used to curette out the femur of any scar formation or nonviable material. Next, three lit ers of normal saline with antibiotic irrigant added was irrigated through the wound. This was fol lowed by placement of a straight all down canal to bring it up to a size 1 and then broaching was per formed up to a size #2 to prepare for a Prostalac type cement technique. Once the bed of the femur w as fully prepared, cement was mixed using a combination of 4 grams of vancomycin and 2.4 grams tobram ycin and 2 bags of Simplex polymethyl methacrylate. This cement was allowed to firm up quite extensi vely and then packed around the femoral component and then some was hand packed into the canal. Next , the component was inserted into the canal, again using a technique in hopes of optimizing antibioti c solution. Once the cement had cured and excess cement was removed, a trial reduction was performed and then the final Unitrax head was applied to the stem and the hip reduced. There was found to be good stability. Next, two drill holes were drilled through the base of the greater trochanter and th e gluteus minimus was reattached to the base of the greater trochanter. A capsular closure was perfo rmed with #2 Vicryl and then #2 Vicryl was used for the fascia andrew and tensor fascia followed by 0 V icryl for Janett's fascia, 2-0 Vicryl and june for the skin. A medium Hemovac drain was placed de ep to the tensor fascia. Once closed, Xeroform gauze and tape dressing was applied to the thigh and then patient was transferred to recovery room in stable condition. There were no complications. She tolerated the procedure well.
[2017-09-23] MEDS: Vancomycin HCl 1 GM in Premix Bag 1 BAG IVPB SCH (21:31)
[2017-09-24] MEDS: Morphine 4 MG/ML VIAL IV PRN ×3 (02:19→22:16)
[2017-09-24] MEDS: Piperacillin/Tazobactam 3.375 GM in Sodium Chloride 0.9% 100 ML IVPB SCH ×4 (02:34→20:49)
[2017-09-24 06:25] LABS: Band 11 % (5-11); Hemoglobin 8.1 g/dL (12.0-16.0); Lymphocytes 7 % (21-51); MDiff Complete? YES; Mean Corpuscular HGB CONC 30.3 g/dL (32.0-36.0); Mean Corpuscular Hemoglobin 28.6 pg (27.0-31.0); Mean Corpuscular Volume 94.3 fl (81.0-99.0); Monocytes 10 % (0-10); Neutrophil 72 % (42-75); PLT Morphology Comment Appears Adequate; Platelet Count 229 thou/uL (130-400); RBC Distribution Width 15.8 % (11.5-14.5); Red Blood Cell (RBC) Count 2.84 mill/uL (4.20-5.40); White Blood Cell (WBC) Count 10.5 thou/uL (4.8-10.8)
[2017-09-24] MEDS: Vancomycin HCl 1 GM in Premix Bag 1 BAG IVPB SCH ×2 (08:32→20:46)
[2017-09-24] MEDS: Amlodipine 5 MG TAB PO SCH (08:32)
[2017-09-24] MEDS: traMADol HCl 50 MG TAB PO PRN ×2 (09:40→20:50)
[2017-09-24] MEDS: Acetaminophen 325 MG TAB PO PRN ×2 (11:48→20:49)
[2017-09-24] MEDS: ALPRAZolam 0.25 MG TAB PO PRN ×2 (11:49→20:51)
--- NOTE | 2017-09-24 13:13 | CON ---
DATE OF CONSULTATION: 09/24/2017 REASON FOR CONSULTATION: Right hip arthroplasty site infection. HISTORY OF PRESENT ILLNESS: An 87-year-old patient who has a history of dementia who sustained a fall while in the home setting and fractured her right hip. The evaluation in 08/2016 indicated the fracture. She underwent right total hip replacement under Dr. Travis's supervision. The operative report was reviewed and nothing really out of the ordinary was noticeable. The patient was transferred to rehabilitation and there according to the daughter, there was some concern with redness around the wound site. She was eventually transferred home and was readmitted after another fall and this time there was evidence of inflammatory process with infection. Dr. Campbell this time did a washout and the operative report reviewed. Purulent material was found. The fascia andrew closure sutures were removed and the prosthesis was readily visible. There was a fractured greater trochanter, the gluteus medius attachment to it. The hip was dislocated. The implant removed without difficulty. The fracture tip of the greater trochanter was excised and debridement was performed, wash out with normal saline followed that and then a straight canal was brought to a size of 1 and then to a size of 2, cement was mixed with vancomycin, tobramycin and methacrylate and this was packed around the femoral component and into the canal component then a new component was inserted into the canal, excess cement removed, and a head was applied to stem, the hip reduced with good stability and then the muscles, gluteus minimus attached to the base of the greater trochanter. This was closed with a drain. Currently, Ms. Colon is moaning and groaning in bed. She does not establish eye contact. Her daughter is in the room. According to the daughter there has been no diarrhea. She is still able to eat. No evidence of aspiration. No other symptoms of note. PAST MEDICAL HISTORY: Dementia, Santiago's palsy. PAST SURGICAL HISTORY: Tubal ligation and the current right hip procedures. SOCIAL HISTORY: Lives in [place] with a residential pest control technician. Never a smoker. FAMILY HISTORY: Noncontributory. CURRENT MEDICATIONS: Xanax, Norvasc, morphine, phenylephrine, Zosyn, vancomycin. PHYSICAL EXAMINATION: VITAL SIGNS: T-max 101.7, currently 98.2, blood pressure 83/71, pulse 98, respirations 16, O2 sat 98%. SKIN: Right hip arthroplasty site with dressing, a drain in place. Peripheral IV access, has a Driver catheter in place. No lymphadenopathy. HEENT: Keeps her eyes her eyes closed. Conjunctivae are normal. Pupils are 2 mm and reactive. Still quite a few teeth in place. She did not open the mouth for inspection. NECK: Has diffuse stiffness. No jugular vein distention. LUNGS: With symmetric clear breath sounds. HEART: S1, S2, regular rate. ABDOMEN: Soft, not distended, no ascites. No bladder distention, no organomegaly. EXTREMITIES: The patient keeps her lower extremities flexed. She was able to extend them at least partially, popliteals 1+. I could not feel dorsalis pedis. Cap refill less than 3 seconds. No edema. She is able to move extremities equally. LABORATORY DATA: White cell count 16,000 on arrival, down to 10.5, hemoglobin 8.1, platelets 229. Sodium 138, creatinine 1.57 now 1.46 with a GFR 34. CRP 29.6. Liver profile normal. We do not have a vancomycin trough yet. Urinalysis with no WBCs seen. Microbiology with Staphylococcus species in both samples from the right hip. 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 DISCUSSION: The patient will need a PICC line inserted and then transferred to a rehab setting for treatment, eventually potentially transfer both to home after completion of treatment. Total duration 42 days of the IV phase with either Rocephin or vancomycin according to the results of susceptibility of the organism plus rifampin orally. It looks like swallowing function is present and normal, although this may be called into question in view of her mental status after completion of the IV phase of treatment and transitioned to either doxycycline plus rifampin or Keflex or rifampin for one and a half months and then suppressive treatment with tetracycline or cephalosporins depending on susceptibility of the organism. Evidently, the patient has a poor functional state and cognitive function and she is at risk for complications such as removal of the IV access and so on. MTDD
[2017-09-24 20:42] LABS: Vancomycin, Trough 27.3 ug/mL
[2017-09-25] MEDS: Piperacillin/Tazobactam 3.375 GM in Sodium Chloride 0.9% 100 ML IVPB SCH (03:42)
[2017-09-25 05:13] LABS: #Basophils 0.1 thou/uL (0.0-0.2); #Eosinphils 0.1 thou/uL (0.0-0.7); #Lymphocytes 0.9 thou/uL (1.20-3.40); #Monocytes 0.8 thou/uL (0.11-0.59); #Neutrophils 7.4 thou/uL (1.40-6.50); %Basophils 0.7 % (0.0-1.0); %Eosinophils 1.5 % (0.0-10.0); %Lymphocytes 9.7 % (21.0-51.0); %Monocytes 8.8 % (0.0-10.0); %Neutrophils 79.3 % (42.0-75.0); Hemoglobin 7.9 g/dL (12.0-16.0); Mean Corpuscular HGB CONC 31.2 g/dL (32.0-36.0); Mean Corpuscular Hemoglobin 29.6 pg (27.0-31.0); Mean Corpuscular Volume 94.8 fl (81.0-99.0); Mean Platelet Volume 7.2 fL (7.4-10.4); Platelet Count 292 thou/uL (130-400); RBC Distribution Width 15.6 % (11.5-14.5); Red Blood Cell (RBC) Count 2.66 mill/uL (4.20-5.40); White Blood Cell (WBC) Count 9.3 thou/uL (4.8-10.8)
[2017-09-25 05:23] LABS: Vancomycin, Random 23.3 ug/mL (See Comment)
[2017-09-25] MEDS: Amlodipine 5 MG TAB PO SCH (08:45)
[2017-09-25] MEDS ORDERED: Piperacillin/Tazobactam 2.25 GM in Sodium Chloride 0.9% 100 ML IVPB SCH (09:00)
[2017-09-25] MEDS: Acetaminophen 325 MG TAB PO PRN ×2 (11:45→18:57)
[2017-09-25] MEDS: ALPRAZolam 0.25 MG TAB PO PRN ×2 (11:46→22:21)
[2017-09-25] MEDS: Morphine 4 MG/ML VIAL IV PRN ×2 (13:38→15:58)
[2017-09-25] MEDS: traMADol HCl 50 MG TAB PO PRN (18:57)
[2017-09-25 21:02] LABS: Vancomycin, Random 20.5 ug/mL (See Comment)
[2017-09-25] MEDS: Rifampin 300 MG CAP PO SCH (22:09)
[2017-09-26] MEDS: Morphine 4 MG/ML VIAL IV PRN (03:46)
[2017-09-26 08:09] VITALS: BP 135/69; TEMP 99.4
[2017-09-26] MEDS ORDERED: Vancomycin HCl 1 GM in Premix Bag 1 BAG IVPB SCH (09:00)
[2017-09-26] MEDS: Rifampin 300 MG CAP PO SCH (09:32)
[2017-09-26] MEDS: Amlodipine 5 MG TAB PO SCH (09:32)
[2017-09-26] MEDS: Vancomycin HCl 1 GM in Premix Bag 1 BAG IVPB SCH ×2 (09:41→09:42)
--- NOTE | 2017-09-26 11:45 | SPC ---
SONOGRAPHIC GUIDED LEFT UPPER EXTREMITY PICC PLACEMENT: Date: 09/26/17 HISTORY: osteomyelitis TECHNIQUE/FINDINGS: After explaining the procedure and answering all questions, the left upper extremity was prepped and draped in the usual sterile fashion. Sterile technique, buffered local anesthesia, sonographic guidan ce, and a 22 gauge needle were used to carefully access the left brachial vein. Standard technique wa s then used to place the tip of a 5 Wolof dual lumen PICC so that the tip lies at the level of the s uperior vena cava. The catheter was flushed and secured externally. Rotation of the patient on the fi nal image causes the catheter tip to overlie the spine. Fluoro time: 0 seconds. The patient tolerated the procedure well and was returned in unchanged condition. IMPRESSION: Technically successful left upper extremity PICC placement. Catheter is now ready for use. POS: [facility]
[2017-09-26] MEDS: ALPRAZolam 0.25 MG TAB PO PRN (12:22)
[2017-09-26] MEDS: Acetaminophen 325 MG TAB PO PRN (12:22)
[2017-09-26] MEDS: traMADol HCl 50 MG TAB PO PRN (12:22)
== END 2017-09-26 14:46 | disposition home or self-care (01) | DRG 466 ==
LOC: ERS 09:36 → SURG A 16:35
PROVIDERS: ADMIT Orthopaedic Surgery; ATTEND Orthopaedic Surgery
PROC: 0SR9049 Replacement of Right Hip Joint with Ceramic on Polyethylene Synthetic Substitute, Cemented, Open Approach (ICD-10-PCS; principal; 2017-09-22)
PROC: 0SP90JZ Removal of Synthetic Substitute from Right Hip Joint, Open Approach (ICD-10-PCS; 2017-09-22)
PROC: 0QB60ZZ Excision of Right Upper Femur, Open Approach (ICD-10-PCS; 2017-09-22)
DX: T84.51XA Infection and inflammatory reaction due to internal right hip prosthesis, initial encounter (principal); S72.111A Displaced fracture of greater trochanter of right femur, initial encounter for closed fracture; L03.115 Cellulitis of right lower limb; G30.9 Alzheimer's disease, unspecified; F02.80 Dementia in other diseases classified elsewhere, unspecified severity, without behavioral disturbance, psychotic disturbance, mood disturbance, and anxiety; I10 Essential (primary) hypertension; Z79.899 Other long term (current) drug therapy; Z88.2 Allergy status to sulfonamides
CPT/HCPCS: 36415; 36430; 36569; 51701; 80048; 80053; 80202; 81003; 81015; 85025; 85652; 86140; 86850; 86900; 86901; 87070; 87077; 87186; 87205; 96361; 96374; C1713; C1751; G8978-GP-CM; G8979-GP-CK; J0131; J2001; J2060; J2270; J2370; J2543; J2704; J3010; J3260; J3370; J3490; J7050; P9016; Q9968